=== PATIENT | female | born 1965 | race Caucasian/White ===

== ENCOUNTER → 2016-08-21 | Outpatient (CLI) | payer BC ==
[2016-08-21 11:17] LABS: CHLORIDE,CL 106 mmol/L (98-110); SODIUM,NA 141 mmol/L (136-146)
== END ==
LOC: MW.CHOBGYN 10:12
PROVIDERS: ATTEND Nurse Practitioner Women's Health
DX: R03.0 Elevated blood-pressure reading, without diagnosis of hypertension (principal); R00.0 Tachycardia, unspecified
CPT/HCPCS: 36415; 80048; 84443; 85025; 93005

== ENCOUNTER → 2016-08-25 | Outpatient (CLI) | payer BC ==
--- NOTE | 2016-08-25 13:53 | US ---
EXAMINATION: Renal ultrasound HISTORY: Hypertension COMPARISON: None TECHNIQUE: Grayscale and color Doppler images obtained of the kidneys and bladder. FINDINGS: The right kidney measures 9.4 cm and the left kidney measures 9.7 cm [id number] without evidence of hydronephrosis. There is normal color Doppler flow bilaterally. Renal cortical echotextu re is normal. No perinephric fluid collections or masses. The urinary bladder is normal. IMPRESSION: Unremarkable renal ultrasound.
--- NOTE | 2016-08-30 15:55 | ECHO ---
The echocardiogram report can be seen in this patient's EMR in the reports section. JUSTICE
== END ==
LOC: MW.US 09:27
PROVIDERS: ATTEND Nurse Practitioner Women's Health
DX: R94.31 Abnormal electrocardiogram [ECG] [EKG] (principal); I10 Essential (primary) hypertension
CPT/HCPCS: 76775; 76775-26; 93306

== ENCOUNTER 2018-02-18 07:30 | Day surgery (SDC) | payer BC ==
[~2018-02-18 07:30] MED LIST: Lactated Ringers 1,000 ML IV SCH; Lidocaine 2% 5 ML SDV ONE; Propofol 200 MG/20 ML SDV ONE; Sodium Chloride 0.9% 10 ML Syringe FLUSH PRN; Sodium Chloride 0.9% 2.5 ML Syringe FLUSH PRN; fentaNYL 100 MCG/2 ML SDV ONE
--- NOTE | 2018-02-18 07:48 | PCM.PREANE ---
Preanesthetic Assessment - Anesthesia/Transfusion/Family Hx Anesthesia History: Prior Anesthesia Without Reaction Other Type of Anesthesia Reaction Comment: pt states she has had problems nausea post anesthesia Family History of Anesthesia Reaction: No Transfusion History: No Prior Transfusion(s) - Review of Systems General: No Symptoms Pulmonary: No Symptoms Cardiovascular: No Symptoms Neurological: No Symptoms Other: Reports: None - Physical Assessment NPO Status Date: 02/17/18 Height: 1.6 m Weight: 54.431 kg ASA Class: 2 Mental Status: Alert & Oriented x3 Airway Class: Mallampati = 1 Dentition: Reports: Normal Dentition ROM/Head Extension: Full Lungs: Clear to Auscultation, Normal Respiratory Effort Cardiovascular: Regular Rate, Regular Rhythm - Allergies Allergies/Adverse Reactions: Allergies Allergy/AdvReac Type Severity Reaction Status Date / Time No Known Allergies Allergy Verified 02/14/18 09:34 - Anesthesia Plan Pre-Op Medication Ordered: None - Acknowledgements Anesthesia Type Planned: MAC Pt an Appropriate Candidate for the Planned Anesthesia: Yes Alternatives and Risks of Anesthesia Discussed w Pt/Guardian: Yes Pt/Guardian Understands and Agrees with Anesthesia Plan: Yes Additional Comments: PMH: chronic LBP, hormone replacement therapy, anxiety disorder PreAnesthesia Questionnaire HEENT History: Reports: Other (See Below) Other HEENT History: reading glasses Gastrointestinal History: Reports: Other (See Below) Other Gastrointestinal History: occasional heartburn Musculoskeletal History: Reports: Arthritis, Back Pain, Chronic Psychiatric History: Reports: Anxiety - Past Surgical History Head Surgeries/Procedures: Reports: None HEENT Surgical History: Reports: Naso-Sinus Surgery, Tonsillectomy - SUBSTANCE USE Smoking Status *Q: Never Smoker Recreational Drug Use History: No - HOME MEDS Home Medications: Home Meds Celecoxib 200 mg PO DAILY 02/14/18 [History] Estradiol [Estrace 0.01% Vaginal Crm] 0.5 applic VAG ASDIRECTED 02/14/18 [ History] Flaxseed Oil [Flax Oil] 1,200 mg PO DAILY 02/14/18 [History] Sertraline HCl 25 mg PO DAILY 02/14/18 [History] cycloSPORINE [Restasis] 1 drop EYEBOTH BID 02/14/18 [History] medroxyPROGESTERone Acetate [Medroxyprogesterone Acetate] 1 tab PO ASDIRECTED [History] - CURRENT (IN HOUSE) MEDS Current Meds: Current Medications Lactated Ringer's (Ringers, Lactated) 1,000 mls @ 100 mls/hr IV ASDIRECTED TONY Lactated Ringer's (Ringers, Lactated) 1,000 mls @ 125 mls/hr IV ASDIRECTED TONY Sodium Chloride (Saline Flush) 10 ml FLUSH ASDIRECTED PRN PRN Reason: Keep Vein Open Sodium Chloride (Saline Flush) 2.5 ml FLUSH ASDIRECTED PRN PRN Reason: Keep Vein Open Sodium Chloride (Saline Flush) 10 ml FLUSH ASDIRECTED PRN PRN Reason: Keep Vein Open Sodium Chloride (Saline Flush) 2.5 ml FLUSH ASDIRECTED PRN PRN Reason: Keep Vein Open Discontinued Medications Fentanyl (Sublimaze) Confirm Administered Dose 100 mcg .ROUTE .STK-MED ONE Stop: 02/18/18 06:58 Lidocaine (Xylocaine-Mpf 2%) Confirm Administered Dose 5 ml .ROUTE .STK-MED ONE Stop: 02/18/18 06:58 Propofol (Diprivan 20 Ml) Confirm Administered Dose 400 mg .ROUTE .STK-MED ONE Stop: 02/18/18 06:58
--- NOTE | 2018-02-18 09:07 | PCM.OPNOTE ---
- General Post-Op/Procedure Note Date of Surgery/Procedure: 02/18/18 Operative Procedure(s): Diagnostic colonoscopy Findings: Normal colonoscopy Pre Op Diagnosis: Change in bowel habits Post-Op Diagnosis: Normal colonoscopy Anesthesia Technique: MAC Primary Surgeon: Stella Aden Condition: Good
--- NOTE | 2018-02-19 12:54 | OR ---
SURGEON: NIGEL HARRELL MD DATE OF PROCEDURE: 02/18/2018 PREOPERATIVE DIAGNOSIS: Change in bowel habits. POSTOPERATIVE DIAGNOSIS: Normal colonoscopy. PROCEDURE PERFORMED: Diagnostic colonoscopy. ANESTHESIA: MAC. INSTRUMENT USED: Olympus colonoscope. EXTENT OF THE EXAM: To the cecum. PREPARATION: Fair. LIMITATIONS: None. INDICATION FOR EXAMINATION: The patient is a 52-year-old female, who presents with an acute change in her bowel habits. She has never had a colonoscopy. We discussed the need for diagnostic colonoscopy. I explained the procedure, expected perioperative course, and risks including bleeding, infection, or damage to surrounding structures including perforation. The patient verbalized understanding and wishes to proceed. PROCEDURE IN DETAIL: The patient was brought to the endoscopy suite and placed in the left lateral decubitus position. A time-out was completed verifying the patient's name, age, date of , allergies, and procedure to be performed. Monitored anesthesia care was induced and continuous oxygen was provided via nasal cannula throughout the procedure. After adequate sedation was achieved, a digital rectal exam was performed. This exam was within normal limits. A well lubricated colonoscope was inserted in the rectum and advanced under direct visualization to the level of the cecum. The cecum was identified by both visual and anatomic landmarks. A photograph was taken of the cecal cap as well as with the scope retroflexed within the cecum. The scope was then fully withdrawn while examining the color, texture, anatomy, and integrity of the mucosa from the cecum to the anal canal. The patient had a fair prep with a small to moderate amount of liquid stool within the colon. This required a large amount of irrigation. However, despite this, I was able to adequately visualize the colon. I did not note any polyps, inflammation, or diverticulosis throughout the colon. The scope was then brought in the rectum and retroflexed to allow visualization of the anal canal opening. This appeared normal and a photograph was taken. The scope was then straightened out and fully withdrawn. The cecum to anus time was 6 minutes. The patient tolerated the procedure well and was taken to PACU in stable condition. ENDOSCOPIC DIAGNOSIS: Normal colonoscopy. RECOMMENDATIONS: I visited with the patient regarding these findings. If the patient continues to have alteration in her bowel habits, she can come back and see me in clinic to discuss ways to manage this. Otherwise, she can follow up with me in clinic for repeat colonoscopy in 10 years. JACY LEBRON /[id number]
== END 2018-02-18 10:00 | disposition home or self-care (01) ==
LOC: MW.SDS 07:30
PROVIDERS: ATTEND Surgery
DX: R19.4 Change in bowel habit (principal); F41.9 Anxiety disorder, unspecified; G47.00 Insomnia, unspecified; G89.29 Other chronic pain; M54.9 Dorsalgia, unspecified; M19.90 Unspecified osteoarthritis, unspecified site; J01.90 Acute sinusitis, unspecified; Z79.899 Other long term (current) drug therapy
CPT/HCPCS: 45378; J2704; J3010; J7120; 00811

== ENCOUNTER 2021-07-31 08:33 | Emergency (ER) | payer MEDICAID ==
[2021-07-31] MEDS ORDERED: Sodium Chloride 0.9% 2.5 ML Syringe FLUSH PRN (08:58)
[2021-07-31] MEDS ORDERED: Sodium Chloride 0.9% 10 ML Syringe FLUSH PRN (08:58)
[2021-07-31] MEDS ORDERED: Ketorolac 30 MG/ML SDV IVPUSH ONE (09:02)
[2021-07-31 09:18] LABS: BLOOD UREA NITROGEN,BUN 18 mg/dL (7.0-18.0); CARBON DIOXIDE,CO2 28.6 mmol/L (21.0-32.0); CHLORIDE,CL 104 mmol/L (98-107); GLUCOSE RANDOM 97 mg/dL (74-106); SODIUM,NA 142 mmol/L (136-145)
== END 2021-07-31 09:40 | disposition home or self-care (01) ==
LOC: MW.ED 08:33
DX: S46.811A Strain of other muscles, fascia and tendons at shoulder and upper arm level, right arm, initial encounter (principal); X50.0XXA Overexertion from strenuous movement or load, initial encounter
CPT/HCPCS: 36415; 71045; 80048; 84484; 85025; 93005; 96374; 99284; J1885; 93010; 99282